=== PATIENT | male | born 1965 | race Two or more races ===

== ENCOUNTER → 2018-01-08 | Outpatient (CLI) | payer OTHER ==
--- NOTE | 2018-01-08 11:34 | RAD ---
Upper GI exam HISTORY: Acid reflux, hiatal hernia COMPARISON: None FINDINGS: Upper GI examination was performed. Litigation Claim Representative radiograph demonstrates nonobstructive bowel gas pattern, retained stool in the right colon. There were episodes of reflux of contrast into the distal esophagus during the exam. Overall esophageal motility is within normal limits. Very small sliding hiatal hernia was transiently demonstrated. There was linear smooth area of relative incomplete distention of the distal esophagus with patient in prone oblique position although not well visualized on upright images, believed to be due to compression by the adjacent heart. Overall caliber of the esophagus is within normal limits. No definitive duodenal ulcer or gastric ulcer was identified. There is degenerative disc disease and spondylosis C5-6 and C6-7. Fluoroscopy time: 2.7 minutes, 32 cine series IMPRESSION: 1. Very small sliding hiatal hernia was transiently demonstrated. There were episodes of reflux of contrast into the distal esophagus during the exam. Appearance of incomplete distention of distal esophagus on prone oblique imaging could not be reproduced on upright portion of exam, believed to be due to compression by the adjacent heart. 2. There is degenerative disc disease and spondylosis C5-6 and C6-7. Electronically signed by: Kaushik Talbot MD (01/08/2018 11:30 AM) [id number]
== END | disposition home or self-care (01) ==
LOC: DXRAD 08:49
PROVIDERS: ATTEND Surgery
DX: K44.9 Diaphragmatic hernia without obstruction or gangrene (principal); M50.323 Other cervical disc degeneration at C6-C7 level; M47.892 Other spondylosis, cervical region
CPT/HCPCS: 74241